=== PATIENT | female | born 1980 | race American Indian/Alaskan Native ===

== ENCOUNTER 2017-12-28 18:37 | Emergency (ER) | payer OTHER ==
[2017-12-28] MEDS ORDERED: Morphine 4 mg/ml ISec IVP STA (20:31)
[2017-12-28 21:15] LABS: HEMOGLOBIN 13.1 g/dL (12.0-16.0); MEAN CELL VOLUME 95.6 fl (80.0-105.0); MEAN CORPUSCULAR HEMOGLOBIN 32.2 pg (25.0-35.0); MEAN CORPUSCULAR HGB CONC 33.7 g/dl (31.0-37.0); MEAN PLATELET VOLUME 10.3 fl (7.0-11.0); RBC 4.07 10^6/uL (3.5-6.1); WHITE BLOOD COUNT 7.3 10^3/uL (4.5-11.0)
--- NOTE | 2017-12-28 21:17 | ED PDOC ---
Arrival/HPI - General Chief Complaint: Back Pain Time Seen by Provider: 12/28/17 20:18 Historian: Patient - History of Present Illness Narrative History of Present Illness (Text): 12/28/17 20:20 37 year old female, whose past medical history includes thoracic compression fraction of T11 and T12, presents to the emergency department complaining of lower back discomfort that radiates down her legs. Patient reports pain when ambulating,and does so with difficulty.. Patient was recently seen and treated for her compression fracture. She was placed on pain medication Percocet and Duexis.States she was told of possibility of Kyphoplasty. Patient denies any fever, chills, chest pain, shortness of breath, nausea, vomiting, diarrhea, change in bowel or urinary habits, neck pain, headache, dizziness, or any other complaints. Symptom Onset: Gradual Symptom Course: Unchanged Activities at Onset: Light Context: Home Past Medical History - Provider Review Nursing Documentation Reviewed: Yes - Infectious Disease Hx of Infectious Diseases: None - Cardiac Hx Cardiac Disorders: No - Musculoskeletal/Rheumatological Other/Comment: hernaited disk - Psychiatric Hx Substance Use: No - Anesthesia Hx Anesthesia: No Family/Social History - Physician Review Nursing Documentation Reviewed: Yes Family/Social History: No Known Family HX Smoking Status: Never Smoked Hx Alcohol Use: Yes Frequency of alcohol use: Socially Hx Substance Use: No Allergies/Home Meds Allergies/Adverse Reactions: Allergies lactose Adverse Reaction (Verified 12/28/17 20:03) DIARRHEA Home Medications: Home Meds Medication Instructions Recorded Confirmed No Known Home Med 12/28/17 12/28/17 Review of Systems - Physician Review All systems were reviewed & negative as marked: Yes - Review of Systems Constitutional: absent: Fevers, Other (Chills) Respiratory: absent: SOB Cardiovascular: absent: Chest Pain Gastrointestinal: absent: Diarrhea, Nausea, Vomiting Genitourinary Female: absent: Dysuria, Frequency, Hematuria Musculoskeletal: Back Pain (lower back pain radiates down to her legs ). absent: Neck Pain Neurological: absent: Headache, Dizziness Physical Exam Vital Signs Reviewed: Yes Vital Signs Temp Pulse Resp BP Pulse Ox 12/28/17 20:40 97.7 F 67 18 115/58 L 100 Temperature: Afebrile Blood Pressure: Normal Pulse: Regular Respiratory Rate: Normal Appearance: Positive for: Well-Appearing, Non-Toxic, Comfortable Pain Distress: None Mental Status: Positive for: Alert and Oriented X 3 - Systems Exam Head: Present: Atraumatic, Normocephalic Pupils: Present: PERRL Extroacular Muscles: Present: EOMI Conjunctiva: Present: Normal Mouth: Present: Moist Mucous Membranes Neck: Present: Normal Range of Motion Respiratory/Chest: Present: Clear to Auscultation, Good Air Exchange. No: Respiratory Distress, Accessory Muscle Use Cardiovascular: Present: Regular Rate and Rhythm, Normal S1, S2. No: Murmurs Abdomen: Present: Normal Bowel Sounds. No: Tenderness, Distention, Peritoneal Signs Back: Present: Pain with Leg Raise (discomfort with straight leg raising). No: Other ((+)Some mild paralumbar tenderness (-) No dorsalspinal tenderness) Upper Extremity: Present: Normal Inspection. No: Cyanosis, Edema Lower Extremity: Present: Normal Inspection, Other (DTR intact bialterally). No: Edema Neurological: Present: GCS=15, CN II-XII Intact, Speech Normal, Motor Func Grossly Intact, Normal Sensory Function Skin: Present: Warm, Dry, Normal Color. No: Rashes Psychiatric: Present: Alert, Oriented x 3, Normal Insight, Normal Concentration Medical Decision Making ED Course and Treatment: 12/28/17 20:25 Impression: 37 year old female presents complaining of lower back discomfort that radiates down her legs at times. Plan: -- CT Lumbar Spine w/ Contrast -- CT Thoracic spine w/ Contrast -- Labs -- Morphine -- Reassess and disposition Progress Notes: EXAM: CT Thoracic Spine W/ IV contrast Electronically signed on Dec 28, 2017 11:55:22 PM EDT by: Andrés Hernandez M.D., IMPRESSION: Mild multilevel degenerative spondylosis. No acute pathology. EXAM: CT Lumbar Spine with IV contrast. Electronically signed on Dec 28, 2017 11:58:01 PM EDT by: Andrés Hernandez M.D. IMPRESSION: Mild multilevel degenerative spondylosis. No acute pathology. 12/29/17 00:[address] Quinteor who is aware and agrees with the plan. Accepts patient into her service and request Dr. Isidro Rivera and Dr. Dion Potts. - Lab Interpretations I have reviewed the lab results: Yes - RAD Interpretation Radiology Orders: 12/28/17 20:26 LUMBAR SPINE W/CONTRAST [CT] Stat THORACIC SPINE W/CONTRAST [CT] Stat - Medication Orders Current Medication Orders: Discontinued Medications Morphine Sulfate (Morphine) 4 mg IVP STAT STA Stop: 12/28/17 20:32 - Scribe Statement The provider has reviewed the documentation as recorded by the Kaylee Granado Provider Scribe Attestation: All medical record entries made by the Scribe were at my direction and personally dictated by me. I have reviewed the chart and agree that the record accurately reflects my personal performance of the history, physical exam, medical decision making, and the department course for this patient. I have also personally directed, reviewed, and agree with the discharge instructions and disposition. Disposition/Present on Arrival - Present on Arrival Any Indicators Present on Arrival: No History of DVT/PE: No History of Uncontrolled Diabetes: No Urinary Catheter: No History of Decub. Ulcer: No History Surgical Site Infection Following: None - Disposition Have Diagnosis and Disposition been Completed?: Yes Diagnosis: Intractable back pain, Compression fracture of thoracic vertebra Disposition: HOSPITALIZED Disposition Time: 00:29 Patient Plan: Observation Patient Problems: Current Active Problems Problem Status Onset Chest pain Acute Cocaine abuse Acute Condition: STABLE Referrals: FAMILY PROVIDER,NO [Primary Care Provider] - Follow up with primary Forms: [employer] (Lithuanian)
[2017-12-28 21:21] LABS: ALB/GLOB RATIO 1.3 (1.1-1.8); ALBUMIN 4.4 g/dL (3.0-4.8); ALT/SGPT 26 U/L (7-56); AST/SGOT 27 U/L (14-36); BLOOD UREA NITROGEN 15 mg/dL (7-21); GFR NON-AFRICAN AMERICAN 56
[2017-12-28] MEDS ORDERED: Iohexol 350 MG/100 ML VIAL ONE (22:13)
[2017-12-29 01:49] VITALS: RESP 17
[2017-12-29 07:01] VITALS: BP 110/58; PULSE 70; TEMP 98.2; O2SAT 100
--- NOTE | 2017-12-29 08:53 | CT ---
Date of service: 12/28/2017 PROCEDURE: CT Lumbar Spine without contrast HISTORY: BACK PAIN COMPARISON: None available. TECHNIQUE: Axial computed tomography images were obtained of the lumbar spine without the use of intravenous contrast. Coronal and sagittal reformatted images were created and reviewed. Radiation dose: Total exam DLP = 644.41 mGy-cm. This CT exam was performed using one or more of the following dose reduction techniques: Automated exposure control, adjustment of the mA and/or kV according to patient size, and/or use of iterative reconstruction technique. FINDINGS: VERTEBRAE: Unremarkable. No fracture. Normal alignment. DISCS/SPINAL CANAL/NEURAL FORAMINA: L1-2: Unremarkable. L2-3: Unremarkable. L3-4: Mild disc bulge L4-5: Asymmetrical disc bulge to the left L5-S1: Mild disc bulge PARASPINAL SOFT TISSUES: Unremarkable. OTHER FINDINGS: The report concurs with the preliminary [facility] report IMPRESSION: Mild disc bulging in the lower lumbar spine. No evidence of stenosis
--- NOTE | 2017-12-29 08:55 | CT ---
Date of service: 12/28/2017 PROCEDURE: CT Thoracic Spine with contrast HISTORY: BACK PAIN COMPARISON: None available. TECHNIQUE: Axial computed tomography images were obtained of the thoracic spine were obtained, following administration of intravenous iodinated contrast. Coronal and sagittal reformatted images were created and reviewed. Intravenous contrast dose: Radiation dose: Total exam DLP = 555.59 mGy-cm. This CT exam was performed using one or more of the following dose reduction techniques: Automated exposure control, adjustment of the mA and/or kV according to patient size, and/or use of iterative reconstruction technique. FINDINGS: VERTEBRAE: Unremarkable. No fracture. Normal alignment. DISCS/SPINAL CANAL/NEURAL FORAMINA: Within the limits of the CT technique, no disc herniation seen. No central canal or neural foraminal stenosis.. PARASPINAL SOFT TISSUES: Unremarkable. ENHANCEMENT: No abnormal enhancement. OTHER FINDINGS: The report concurs with the preliminary [facility] report. IMPRESSION: Unremarkable contrast-enhanced CT of the thoracic spine.
== END 2017-12-29 00:40 | disposition left against medical advice (07) ==
LOC: ED 18:37 → ERH 12-29 00:45 → UNDOADMOB 12-29 00:45 → ERH 12-29 01:36
DX: M48.54XA Collapsed vertebra, not elsewhere classified, thoracic region, initial encounter for fracture (principal); M54.5 Low back pain
CPT/HCPCS: 72129; 72132; 80053; 85027; 96374; 99284; J2270; Q9967